=== PATIENT | male | born 1985 | race Asian ===

== ENCOUNTER 2017-05-21 09:30 | Inpatient (IN) | payer OTHER ==
--- NOTE | 2017-05-17 12:14 | PREOPHP ---
DATE OF ADMISSION: 05/21/2017 REASON FOR CONSULTATION: A consultation is requested by Dr. Solomon Hernandez, for medical evaluation and clearance of a 31- year-old gentleman about to undergo surgery on his back. Thank you, Dr. Hernandez for allowing us to participate in the care of this patient. HISTORY OF PRESENT ILLNESS: The patient is a 31-year-old gentleman having issues with his back secondary to a work incident and he is currently being admitted for correction of the above. In terms of prior treatment for the back, he has had physical therapy and epidurals to no avail and is currently being admitted for a microdiskectomy. PAST MEDICAL HISTORY: He has had no other surgical procedures done in the past. He has had no medical hospitalizations. He has not broken any bones. MEDICATIONS: He does not take any chronic medications. ALLERGIES: NO ALLERGIES TO ANY MEDICATIONS. SOCIAL HISTORY: The patient is engaged and has a 9 month old daughter. He does not smoke. Alcohol socially. He does not drink coffee. He has no difficulty sleeping at night time. He is a purchasing associate. FAMILY HISTORY: Both parents are alive. Father is 63, and mother is 63. Both are in good health. Two siblings in good health. There is family history of diabetes and hypertension. He knows of no heart, cancer or stroke. REVIEW OF SYSTEMS: HEENT: Unremarkable. CARDIOPULMONARY: Denies any chest pain or shortness of breath. GASTROINTESTINAL: No melena or hematemesis. GENITOURINARY: No urgency or frequency. MUSCULOSKELETAL: Positive for back pain. NEUROPSYCHIATRIC: Unremarkable in general health as above. PHYSICAL EXAMINATION: VITAL SIGNS: The patient's blood pressure was 120/68, pulse 81 and regular. Respirations 18. Temperature 97.6. Height 5 feet, 8 inches. Weight is 183 pounds. GENERAL APPEARANCE: The patient was noted to be a well- developed, well-nourished male, alert and cooperative in no apparent acute distress. Oriented to time, place and person. HEENT: Head: Atraumatic. Eyes: Pupils were equal, reactive to light and accommodation. Fundi were benign. Ears: Tympanic membranes were unremarkable. Nose: Negative. Mouth: Unremarkable. Fair oral hygiene was present. NECK: Supple, without any rigidity. Trachea was midline. Thyroid was within normal limits. Neck veins were flat and carotid pulses were equal. BACK: Exam was unremarkable. CHEST: Symmetrical. BREASTS: Axillary exam did not reveal any masses. LUNGS: Clear to percussion and auscultation. CARDIAC: The PMI is at the fifth intercostal space, at the midclavicular line. Regular sinus rhythm was noted. No significant murmurs, rubs, or gallops being elicited. ABDOMEN: Soft. Good bowel sounds were noted. No significant organomegaly, masses or tenderness. GENITALIA: Normal male external genitalia. RECTAL: Rectal and prostatic exam was not done. EXTREMITIES: Did not reveal any clubbing, edema or cyanosis. Peripheral pulses were physiologic. SKIN: The skin was moist and warm, without any eruptions. No gross lymphadenopathy was noted. NEUROLOGIC: Grossly intact. LABORATORY DATA: Revealed the following: Chemistry panel including electrolytes, glucose, BUN, creatinine, liver functions tests were basically normal. CBC, sed rate, UA, PT, and PTT are pending and are to follow. EKG: The patient's EKG was normal with some junctional type changes, not necessarily abnormal for his age. IMAGING: Chest x-ray was within normal limits. IMPRESSION: 1. Lumbar disc disease. 2. Stable health. DISCUSSION: Pending PT and PTT, assuming that it is normal, I see no contraindications for this patient undergoing current proposed surgery under the desired form of anesthesia. I will be more than happy to follow him up a the appropriate time. Thank you again, Dr. Hernandez, for allowing me to participate in the care of this patient. Dictated By: Edouard Syed MD /kari/ct /Document#: [id number]
[2017-05-18 14:48] VITALS: BMI 27.3
[2017-05-21] VITALS (22 sets, daily range): BP systolic 121–163; BP diastolic 60–95; PULSE 58–76; RESP 14–25; Ht 172.7 cm; Wt 80.1 kg
[~2017-05-21] VITALS: Ht 172.7 cm; Wt 80.1 kg
[~2017-05-21 09:30] MED LIST: PROPOFOL 200 MG INJ ONE
[2017-05-21] MEDS ORDERED: CEFAZOLIN 2 GM/50 ML (PMX) 50 ML IVPB ONE (10:00)
[2017-05-21] MEDS ORDERED: LACTATED RINGER'S 1,000 ML IV* ONE (10:00)
[2017-05-21 11:00] LABS: INR 0.94; PROTIME 12.6 Sec (12.2-14.2)
[2017-05-21 11:28] LABS: PARTIAL THROMBOPLASTIN TIME 38.3 Sec (25.0-35.0)
--- NOTE | 2017-05-21 11:39 | HPN ---
Date/Time of Note Date/Time of Note DATE: 05/21/17 TIME: 11:39 Interval H&P Admission Note Pt. seen H&P reviewed: No system changes TOÑITO AGUILAR PA-C May 21, 2017 11:39
[2017-05-21] MEDS ORDERED: NALOXONE (0.4 MG/ML) INJ IV PRN (12:00)
[2017-05-21] MEDS ORDERED: HYDROmorphONE 1 MG/ML SYG IV PRN (12:00)
[2017-05-21] MEDS ORDERED: DIPHENHYDRAMINE 50 MG INJ IV PRN ×2 (12:00→13:30)
[2017-05-21] MEDS ORDERED: ZOLPIDEM 5 MG TAB PO PRN (12:00)
[2017-05-21] MEDS ORDERED: ACETAMINOPHEN 325 MG TAB PO PRN (12:00)
[2017-05-21] MEDS ORDERED: AL HYDROX/MG HYDROX/SIMETH 30 ML CUP PO PRN (12:00)
[2017-05-21] MEDS ORDERED: CEPASTAT LOZENGE MT PRN (12:00)
[2017-05-21] MEDS ORDERED: ONDANSETRON 4 MG INJ IV PRN ×2 (12:00→13:30)
[2017-05-21] MEDS ORDERED: BISACODYL 10 MG SUPP PR PRN (12:00)
[2017-05-21] MEDS ORDERED: FENTAnyl 50 MCG/ML VIAL ONE (12:15)
[2017-05-21] MEDS ORDERED: MIDAZOLAM 1 MG/ML 2 ML INJ ONE (12:15)
[2017-05-21] MEDS ORDERED: PROPOFOL 20 ML ONE (12:15)
[2017-05-21] MEDS ORDERED: LIDOCAINE 2% (SDV) 5 ML INJ ONE (12:15)
[2017-05-21] MEDS ORDERED: SUCCINYLCHOLINE CHLORIDE 100 MG/5 ML SYG IV ONE (12:15)
[2017-05-21] MEDS ORDERED: ROCURONIUM 50 MG INJ ONE (12:15)
[2017-05-21] MEDS ORDERED: BUPIVACAINE 0.25%/EPI (SDV) 30 ML INJ ONE (12:21)
[2017-05-21] MEDS ORDERED: THROMBIN 5000 UNIT VIAL ONE (12:21)
[2017-05-21] MEDS ORDERED: SURGIFOAM POWDER 1 GM KIT ONE (12:21)
[2017-05-21] MEDS ORDERED: GELATIN SIZE 100 SPONGE ONE (12:21)
[2017-05-21] MEDS ORDERED: POLYMYXIN/BACITRACIN 1L IRRIG ONE (12:21)
[2017-05-21] MEDS ORDERED: CA CHLORIDE 10% 10 ML SYRINGE ONE (12:31)
[2017-05-21] MEDS: CEFAZOLIN 1 GM/50 ML (PMX) 50 ML IVPB SCH ×2 (12:46→20:10)
[2017-05-21] MEDS ORDERED: CEFAZOLIN 1 GM INJ ONE (12:48)
[2017-05-21] MEDS ORDERED: ONDANSETRON 4 MG INJ ONE (13:10)
[2017-05-21] MEDS ORDERED: HYDROmorphONE 2 MG/ML SYG ONE (13:11)
[2017-05-21] MEDS ORDERED: FAMOTIDINE 20 MG INJ ONE (13:11)
[2017-05-21] MEDS ORDERED: DEXAMETHASONE 4 MG/ML 1 ML INJ ONE (13:11)
[2017-05-21] MEDS ORDERED: BUPIVACAINE 0.5% (SDV) 30 ML INJ ONE (13:28)
[2017-05-21] MEDS ORDERED: PROCHLORPERAZINE 10 MG INJ IV PRN (13:30)
[2017-05-21] MEDS ORDERED: HYDROmorphONE (0.2 MG/ML) 10ML SYG IV PRN (13:30)
[2017-05-21] MEDS ORDERED: FENTAnyl 50 MCG/ML VIAL IV PRN ×3 (13:30)
[2017-05-21] MEDS ORDERED: MEPERIDINE 25 MG INJ IV PRN (13:30)
[2017-05-21] MEDS ORDERED: NEOSTIGMINE 3 MG/3 ML SYRINGE ONE (13:56)
[2017-05-21] MEDS ORDERED: GLYCOPYRROLATE 0.4 MG INJ ONE (13:56)
--- NOTE | 2017-05-21 14:13 | OPR ---
Date/Time of Note Date/Time of Note DATE: 05/21/17 TIME: 14:11 Operative Report Free Text/Dictation right L4-5 HNP Preoperative Diagnosis right L4-5 HNP Postoperative Diagnosis right L4-5 HNP Operation/Procedure Performed [facility] L4-5 discectomy Surgeon: JOHNNY MESA MD commercial real estate assistant: TOÑITO AGIULAR PA-C Anesthesia: general Estimated Blood Loss: 10 - 50 ml's Specimens disk Complications: None JOHNNY MESA MD May 21, 2017 14:12
--- NOTE | 2017-05-21 15:43 | RADRPT ---
PROCEDURE: XR Lumbar Spine one view. CLINICAL INDICATION: Low back pain. Intraoperative. TECHNIQUE: Prone portable cross-table lateral. COMPARISON: No prior studies are available for comparison. FINDINGS: For the purposes of this report, the last apparent true disc level is considered to be L5-S1. Based on this, the posterior needle markers are present at upper L4 and upper L5 levels. IMPRESSION: 1. Intraoperative imaging as described above. RPTAT: QQ .Higinio Horn MD, MD Date Time Electronically viewed and signed by .Higinio Horn MD, on 05/21/2017 15:43 .R/
--- NOTE | 2017-05-21 15:44 | RADRPT ---
PROCEDURE: XR Lumbar Spine one view. CLINICAL INDICATION: Low back pain. Intraoperative. TECHNIQUE: Prone portable cross-table lateral. COMPARISON: No prior studies are available for comparison. FINDINGS: For the purposes of this report, the last apparent true disc level is considered to be L5-S1. Based on this, the posterior surgical instrument is present overlying the L4-5 level. IMPRESSION: 1. Intraoperative imaging as described above. RPTAT: QQ .Higinio Horn MD, MD Date Time Electronically viewed and signed by .Higinio Horn MD, on 05/21/2017 15:43 .R/
[2017-05-21] MEDS: D5W-0.45 NACL + KCL 20 MEQ 1,000 ML IV SCH ×2 (16:25→21:39)
[2017-05-21] MEDS: HYDROCODONE/APAP (10/325) TAB PO PRN ×2 (16:32→21:13)
--- NOTE | 2017-05-21 17:16 | CONS ---
Date/Time of Note Date/Time of Note DATE: 05/21/17 TIME: 17:09 Assessment/Plan Assessment/Plan Additional Assessment/Plan plan per dr.b montejo will follow with you thank you--[facility] Consultation Date/Type/Reason Admit Date/Time May 21, 2017 at 09:30 Initial Consult Date 05/14/2017 Type of Consultation: internal medicine Reason for Consultation pre-op medical clearance 24 HR Interval Summary Free Text/Dictation patient seen in recovery room post-op complaining of back pain but generally stable Constitutional: no complaints Exam/Review of Systems Vital Signs Vitals Vital Signs Date Time Temp Pulse Resp B/P Pulse Ox O2 Delivery O2 Flow Rate FiO2 05/21/17 15:22 60 19 140/72 98 Nasal Cannula 05/21/17 14:59 2.0 05/21/17 14:17 98.2 Exam Constitutional: oriented ENMT: nl external ears & nose Respiratory: clear to auscultation Cardiovascular: regular rate and rhythm Gastrointestinal: soft Results Results 24 hrs Laboratory Tests Test 05/21/17 10:30 Prothrombin Time 12.6 Prothrombin Time Ratio 1.0 INR International Normalized Ratio 0.94 Activated Partial Thromboplast Time 38.3 H Medications Medications Current Medications Potassium Chloride/Dextrose/ Sod Cl (D5-1/2ns + KCl 20 Meq) 1,000 ml @ 100 mls/ hr Q10H IV Last administered on 05/21/17 16:25; Admin Dose 100 MLS/HR; Start 05/21/17 at 11:39 Acetaminophen/ Hydrocodone Bitart ([place] (10/325)) 1 tab Q4H PRN PO PAIN LEVEL 1-5 Last administered on 05/21/17 16:32; Admin Dose 1 TAB; Start 05/21/17 at 12 :00 Acetaminophen/ Hydrocodone Bitart ([place] (10/325)) 2 tab Q4H PRN PO PAIN LEVEL 6-10; Start 05/21/17 at 12:00 Hydromorphone HCl 0.2 mg 0.2 mg Q1H PRN IV BREAKTHROUGH PAIN; Start 05/21/17 at 12:00 Cefazolin Sodium (Ancef 1 Gm/50 ml (Pmx)) 50 ml @ 100 mls/hr Q8H IVPB ; Start 05/21/17 at 12:00; Stop 05/22/17 at 04:29 Ondansetron HCl (Zofran Inj) 4 mg Q6H PRN IV NAUSEA AND/OR VOMITING; Start at 12:00 Bisacodyl (Dulcolax Supp) 10 mg DAILY PRN [place] CONSTIPATION; Start 05/21/17 at 12 :00 Docusate Sodium (Colace) 100 mg BID PO ; Start 05/21/17 at 21:00 Pantoprazole (Protonix Iv) 40 mg DAILY@06 IV ; Start 05/22/17 at 06:00 Al Hydrox/Mg Hydrox/Simethicone (Mag-Al Plus) 15 ml Q6H PRN PO CONSTIPATION/ DYSPEPSIA; Start 05/21/17 at 12:00 Acetaminophen (Tylenol Tab) 650 mg Q4H PRN PO ELENA OR TEMP GREATER THAN 101.3F; Start 05/21/17 at 12:00 Cyclobenzaprine HCl (Flexeril) 10 mg TID PRN PO MUSCLE SPASMS; Start 05/21/17 at 12:00 Phenol (Cepastat Lozenge) 1 lozenge PRN PRN MT SORE THROAT; Start 05/21/17 at 12:00 Diphenhydramine HCl (Benadryl) 25 mg Q6H PRN IV ITCHING; Start 05/21/17 at 12: 00 Naloxone HCl (Narcan) 0.2 mg Q2M PRN IV RR 8 BREATHS/MIN OR LESS; Start at 12:00 LUI DIAZ MD May 21, 2017 17:16
[2017-05-21] MEDS: CYCLOBENZAPRINE 10 MG TAB PO PRN (18:26)
[2017-05-21] MEDS: DOCUSATE SODIUM 100 MG CAP PO SCH (20:12)
[2017-05-22] MEDS: HYDROCODONE/APAP (10/325) TAB PO PRN ×4 (01:45→18:13)
[2017-05-22] MEDS: CYCLOBENZAPRINE 10 MG TAB PO PRN ×2 (02:20→12:35)
[2017-05-22] MEDS: D5W-0.45 NACL + KCL 20 MEQ 1,000 ML IV SCH (02:20)
[2017-05-22] MEDS: CEFAZOLIN 1 GM/50 ML (PMX) 50 ML IVPB SCH (04:51)
[2017-05-22] MEDS ORDERED: PANTOPRAZOLE 40 MG INJ IV SCH (06:00)
[2017-05-22 08:00] VITALS: BP 100/53; RESP 18
--- NOTE | 2017-05-22 08:19 | CONS ---
Date/Time of Note Date/Time of Note DATE: 05/22/17 TIME: 08:16 Assessment/Plan Assessment/Plan Chief Complaint/Hosp Course back pain improving Problems: Additional Assessment/Plan plan per medically stable-----thank you [facility] Consultation Date/Type/Reason Admit Date/Time May 21, 2017 at 09:30 Initial Consult Date 05/14/2017 Type of Consultation: internal medicine Reason for Consultation medical f/u 24 HR Interval Summary Free Text/Dictation only complaint some back pain post-op Subjective hx not possible: pt critical Constitutional: no complaints Exam/Review of Systems Vital Signs Vitals Vital Signs Date Time Temp Pulse Resp B/P Pulse Ox O2 Delivery O2 Flow Rate FiO2 05/22/17 08:00 98.5 66 18 100/53 96 05/21/17 20:00 Nasal Cannula 2.0 Intake and Output 05/21/17 05/21/17 05/22/17 15:00 23:00 07:00 Intake Total 1400 ml 580 ml 1600 ml Output Total 5 ml 500 ml 1500 ml Balance 1395 ml 80 ml 100 ml Exam Constitutional: alert Psych: no complaints Head: normocephalic Eyes: nl conjunctiva ENMT: nl external ears & nose Neck: supple Respiratory: clear to auscultation Cardiovascular: regular rate and rhythm Gastrointestinal: soft Results Results 24 hrs Laboratory Tests Test 05/21/17 10:30 Prothrombin Time 12.6 Prothrombin Time Ratio 1.0 INR International Normalized Ratio 0.94 Activated Partial Thromboplast Time 38.3 H Medications Medications Current Medications Potassium Chloride/Dextrose/ Sod Cl (D5-1/2ns + KCl 20 Meq) 1,000 ml @ 100 mls/ hr Q10H IV Last administered on 05/22/17 02:20; Admin Dose 100 MLS/HR; Start 05/21/17 at 11:39 Acetaminophen/ Hydrocodone Bitart ([place] (10/325)) 1 tab Q4H PRN PO PAIN LEVEL 1-5 Last administered on 05/22/17 05:50; Admin Dose 1 TAB; Start 05/21/17 at 12 :00 Acetaminophen/ Hydrocodone Bitart ([place] (10/325)) 2 tab Q4H PRN PO PAIN LEVEL 6-10 Last administered on 05/22/17 01:45; Admin Dose 2 TAB; Start 05/21/17 at 12:00 Hydromorphone HCl (Dilaudid) 0.2 mg Q1H PRN IV BREAKTHROUGH PAIN; Start at 12:00 Ondansetron HCl (Zofran Inj) 4 mg Q6H PRN IV NAUSEA AND/OR VOMITING; Start at 12:00 Bisacodyl (Dulcolax Supp) 10 mg DAILY PRN [place] CONSTIPATION; Start 05/21/17 at 12 :00 Docusate Sodium (Colace) 100 mg BID PO Last administered on 05/21/17 20:12; Admin Dose 100 MG; Start 05/21/17 at 21:00 Pantoprazole (Protonix Iv) 40 mg DAILY@06 IV Last administered on 05/22/17 05: 50; Admin Dose 40 MG; Start 05/22/17 at 06:00 Al Hydrox/Mg Hydrox/Simethicone (Mag-Al Plus) 15 ml Q6H PRN PO CONSTIPATION/ DYSPEPSIA; Start 05/21/17 at 12:00 Acetaminophen (Tylenol Tab) 650 mg Q4H PRN PO ELENA OR TEMP GREATER THAN 101.3F; Start 05/21/17 at 12:00 Cyclobenzaprine HCl (Flexeril) 10 mg TID PRN PO MUSCLE SPASMS Last administered on 05/22/17 02:20; Admin Dose 10 MG; Start 05/21/17 at 12:00 Phenol (Cepastat Lozenge) 1 lozenge PRN PRN MT SORE THROAT Last administered on 05/21/17 18:26; Admin Dose 1 LOZENGE; Start 05/21/17 at 12:00 Diphenhydramine HCl (Benadryl) 25 mg Q6H PRN IV ITCHING; Start 05/21/17 at 12: 00 Naloxone HCl (Narcan) 0.2 mg Q2M PRN IV RR 8 BREATHS/MIN OR LESS; Start at 12:00 LUI DIAZ MD May 22, 2017 08:19
[2017-05-22] MEDS: DOCUSATE SODIUM 100 MG CAP PO SCH (08:55)
--- NOTE | 2017-05-25 12:25 | DS ---
DATE OF ADMISSION: 05/21/2017 DATE OF DISCHARGE: 05/22/2017 FINAL DIAGNOSES: Lumbar disc herniation. FINAL DIAGNOSES: Lumbar disc herniation. PROCEDURE: Patient taken the operating room on 05/21/2017 and underwent lumbar diskectomy. HOSPITAL COURSE: The patient was admitted to the [facility] after undergoing the above procedure. His postoperative course was uncomplicated. By postop day 1, he was deemed stable for discharge. [____][____]. Dictated By: Solomon Hernandez MD /kari/ct /Document#: [id number]
--- NOTE | 2017-05-26 09:36 | OPR ---
DATE OF OPERATION: 05/21/2017 SURGEON: Solomon Hernandez MD. CRATE OPENER: Anjelica Falk PA-C. ANESTHESIOLOGIST: Dr. Buenrostro. NEED FOR CLINICAL BIOCHEMIST: Business Applications Analyst was required to retract the neurovascular elements. This cannot be done by the certified emergency vehicle technician. PREOPERATIVE DIAGNOSIS: Right L4-5 disc herniation with radiculopathy. POSTOPERATIVE DIAGNOSIS: Right L4-5 disc herniation with radiculopathy. OPERATION PERFORMED: 1. Right L4-5 hemilaminotomy, partial medial facetectomy, foraminotomy. 2. Right L4-5 lumbar microdiskectomy. 3. Lateral localization film x2. 4. Intraoperative neural monitoring (1 hour and 15 minutes). 5. Use of operative microscope. ANESTHESIA: General. ESTIMATED BLOOD LOSS: Less than 30 mL. DRAINS: None. SPECIMENS: Disc. COMPLICATIONS: None. INDICATIONS: The patient is a 31-year-old gentleman with right lumbosacral radiculopathy, with disc herniation at L4-5. He has failed nonoperative measures, therefore I recommended proceeding with the above mentioned surgery. Preoperatively the risks, benefits and alternatives of the surgery were reviewed with the patient understood and he wishes to proceed. OPERATIVE PROCEDURE: The patient was identified in the preoperative holding area, given anesthesia, antibiotics and taken to the operating room where se was successfully placed under general anesthesia. Neural monitors were placed, sequential compressive devices were applied. Neural monitoring was utilized during the procedure for 1 hour and 15 minutes to include SSCP, PNA, and EMG. This was performed by [employer]. Start time was 12:45 p.m. Closure time was 2:00 p.m. The patient was placed on the operating room table in the prone position, on the Marcin frame. All bony prominences were padded. The back was prepped and draped in the usual sterile fashion. Spinal needles were placed, and a lateral localizing film was obtained to confirmed the correct level. Once this was confirmed, I injected the paraspinal musculature with 0.25 percent Marcaine with epinephrine. An incision was made over the L4-5 level. The incision was taken down to the dorsal fascia, which was incised with Bovie cautery. I then subperiosteally dissected the right L4 lamina, a Apple retractor was placed. Kerrison's were placed in what was felt to be the L4 lamina, and a repeat lateral film obtained had confirmed the correct level. Once this was confirmed the microscope was brought in, a right- sided hemilaminotomy, partial medial facetectomy and foraminotomy was performed. The ligamentum flavum was then sharply dissected overlying the nerve root, and I kept this intact over the dura more medially. I then had my assistant director of security retract the neural elements medially. I then identified the annulus and made annulotomy, followed by a limited microdiskectomy to remove the extruded fragments. Once this was done, all nerve [____] were returned to normal. I irrigated the wound and the disc space. Hemostasis was achieved with Surgifoam and bipolar cautery. The wound was dry and therefore I elected not to place a drain. Anesthesiologist julio peripheral blood which was spun using the [____] device and I took the PPP and injected the [____] dura for hemostatic purposes. Retractors were removed, then I closed the deep fascia with #1 Vicryl stitch. I then injected plain Marcaine into the paraspinal musculature. The microscope was taken off of the field. #2-0 Vicryl was closure was then performed, followed by #4-0 Monocryl closure. Dermabond was then applied. The patient was then awaken from anesthesia and taken to the Recovery room in stable condition. Lap, sponge and instrument counts were correct x2. There were no apparent complications during the procedure. The patient will be admitted to [facility] for routine postoperative care to include pain control, [____], antibiotic and physical therapy. Dictated By: Solomon Hernandez MD /kari/ct /Document#: [id number]
== END 2017-05-22 18:30 | disposition home or self-care (01) | DRG 520 ==
LOC: REC 09:30 → EDSTATUS 12:00 → MS1 15:30
PROVIDERS: ADMIT Specialist; ATTEND Specialist
PROC: 0SB20ZZ Excision of Lumbar Vertebral Disc, Open Approach (ICD-10-PCS; principal; 2017-05-21 12:00)
DX: M51.16 Intervertebral disc disorders with radiculopathy, lumbar region (principal)
CPT/HCPCS: 72020; 85610; 85730; 86999; 97116; 97163; 97530; C9113; J0690; J1100; J1170; J2250; J2405; J2710; J3010; J3480; J7120; J7999